=== PATIENT | female | born 1950 | race Caucasian/White ===

== ENCOUNTER 2021-12-22 05:44 | Day surgery (SDC) | payer OTHER ==
[~2021-12-22 05:44] MED LIST: AMITRIPTYLINE H10 MG PO; CARAFATE1 GM/10 ML PO; LEVO-T75 MCG PO; LYRICA50 MG PO; NEXIUM40 M1 PO; ZETIA10 MG PO
[2021-12-22] MEDS ORDERED: PERCOCET 5-3251 EACH PO (10:49)
[2021-12-22] MEDS ORDERED: DERMOPLAST PAIN78 GM TOP (10:49)
[2021-12-22] MEDS ORDERED: KETO10TA2 PO (10:49)
[2021-12-22] MEDS ORDERED: GABAPENTIN100 MG PO (10:50)
== END 2021-12-22 15:30 | disposition home or self-care (01) ==
LOC: CIR.AMB 05:44
PROVIDERS: ATTEND Surgery
DX: K64.3 Fourth degree hemorrhoids (principal); K64.9 Unspecified hemorrhoids; K64.5 Perianal venous thrombosis; E03.9 Hypothyroidism, unspecified